=== PATIENT | male | born 1975 | race Caucasian/White ===

== ENCOUNTER 2024-06-25 03:11 | Observation (INO) | payer OTHER, SELFPAY ==
[2024-06-25] VITALS (33 sets, daily range): BP systolic 112–190; BP diastolic 62–119; PULSE 69–113; RESP 12–23; TEMP 36.3–36.9; O2SAT 87–97; BMI 37.2
--- NOTE | 2024-06-25 03:20 | DI.CT.S_ITS ---
PROCEDURE: CT ANGIO CHEST PE PROTOCOL INDICATIONS: SUDDEN DYSPNEA, TACHYCARDIA S/P TRAVEL TECHNIQUE: After the administration of intravenous contrast, 2 mm thick sections acquired from the pulmonary apices to the posterior costophrenic angles. 3-dimensional maximum intensity projection (MIP) coronal and sagittal reformats were then acquired through the thorax. For radiation dose reduction, the following was used: automated exposure control, adjustment of mA and/or kV according to patient size. COMPARISON: None. FINDINGS: Image quality: Diagnostic Lungs and pleura: [id number] diffuse septal thickening and ground-glass opacities trace right pleural effusion. A more focal nodular opacity is seen on 4/76 mention on the prelim report measuring 10 millimeters Mediastinum, heart, and esophagus: Cardiomegaly. No acute pulmonary embolism. Coronary calcifications. Incidentally noted right-sided aortic arch and descending aorta. No pathologic lymph nodes by size criteria. Unremarkable esophagus. Chest wall and thyroid: Unremarkable Upper abdomen: Unremarkable on this arterial phase study Bones: Unremarkable osseous structures IMPRESSION: No acute pulmonary embolism. [id number] septal thickening and ground-glass opacities likely pulmonary edema. Small pleural effusion. Differential includes atypical infection. A more focal nodular opacity seen on image 4/76 mentioned on the preliminary report in the right lower lobe measuring 10 millimeters. Consider surveillance imaging for the above findings. Incidentally noted right-sided aortic arch and thoracic descending aorta. Coronary calcifications. No significant discrepancy from the prelim report. Dictated by: Michele López M.D. on 06/25/2024 at 7:36 Approved by: Michele López M.D. on 06/25/2024 at 7:41
--- NOTE | 2024-06-25 03:28 | EKG_ITS ---
[facility] [id number], [place] [address] Test Date: 2024-06-25 Pat Name: Mc Almanza JR Department: [facility] Room: Gender: Male Paver Operator: : 1975 Requested By: Order Number: [id number] Reading MD: Onel Wilcox MD Measurements Intervals [place] Rate: 105 P: ND: 162 QRS: 19 QRSD: 90 T: 12 QT: 342 QTc: 452 Interpretive Statements Sinus tachycardia with occasional premature ventricular complexes Electronically Signed On 06-25-2024 11:40:46 PST by Onel Wilcox MD
[2024-06-25 03:32] LABS: Add Manual Diff / Slide Review NO; Basophils Absolute Auto 100 /uL (0-100); Basophils Percent Auto 0.8 % (0-2); Eosinophils Absolute Auto 200 /uL (0-450); Eosinophils Percent Auto 3.1 % (2-4); Hematocrit 46.9 % (41-53); Lymphocytes Absolute Auto 2700 /uL (1100-4500); Lymphocytes Percent Auto 37.1 % (25-40); Mean Corpuscular HGB Conc 34.1 % (30-36); Monocytes Absolute Auto 500 /uL (0-900); Monocytes Percent Auto 7.4 % (3-14); Neutrophils Absolute Auto 3800 /uL (1500-7000); Neutrophils Percent Auto 51.6 % (50-75); Platelet Count 248 X10^3/uL (150-400); Red Blood Cell Count 5.34 X10^6/uL (4.5-5.9); White Blood Cell Count 7.3 X10^3/uL (4.5-11.0)
--- NOTE | 2024-06-25 03:32 | ED.SOB ---
HPI - SOB/Dyspnea General Chief Complaint: Shortness of Breath/Dyspnea Stated Complaint: SOB Time Seen by Provider: 06/25/24 03:14 Source: patient Mode of arrival: Ambulatory Limitations: no limitations History of Present Illness HPI Narrative: 49-year-old male with history of hypertension, hyperlipidemia presents by private vehicle from home for shortness of breath. Patient states that he went to bed in his usual state of health. When he got up in the middle of the night to use the restroom he abruptly became short of breath. Recently traveled from [place] to [place]. Denies history of heart problems, lung problems, history of blood clots. Denies leg swelling or recent surgery. Related Data Allergies Allergy/AdvReac Type Severity Reaction Status Date / Time No Known Drug Allergies Allergy Verified 06/25/24 03:20 Patient History Social History Smoking Status: Never smoker Smoking Status: Never smoker alcohol intake frequency: a few times a month Substance Use Type: does not use Exam Initial Vital Signs Initial Vital Signs: Vital Signs Temperature 97.4 F L 06/25/24 03:20 Pulse Rate 113 H 06/25/24 03:20 Respiratory Rate 22 06/25/24 03:20 Blood Pressure 190/119 H 06/25/24 03:20 Pulse Oximetry 95 06/25/24 03:20 Oxygen Delivery Method Room Air 06/25/24 03:20 Const: Awake, alert, nontoxic appearing Cardiac: Tachycardia, regular rhythm RESP: Mild tachypnea, clear bilaterally, no wheezing GI: Soft, nontender, nondistended MSK: Grossly equal in size, full range of motion, pulses equal Skin: Warm, Dry, intact, no rashes Neuro: AO x3, CN II-XII grossly intact, moves all extremities Course Orders Ordered: ED Orders 06/25/24 03:20 CT angio chest PE protocol Stat 06/25/24 03:21 EKG-12 Lead Stat 06/25/24 03:25 BNP [NT-proBNP (BNP-Adult 18+)] Stat CBC Auto Diff [Complete Blood Count AUTO DIFF] Stat CMP [Comprehensive Metabolic Panel] Stat PT [Prothrombin Time INR] Stat Troponin & CK Cardiac Panel Stat 06/25/24 05:30 Trop I [Troponin I] Stat Furosemide (Furosemide 40 Mg/4 Ml Vial) 20 mg IV NOW ONE Stop: 06/25/24 05:02 Discontinued Medications Furosemide (Furosemide 40 Mg/4 Ml Vial) 20 mg IV NOW ONE Stop: 06/25/24 04:30 Last Admin: 06/25/24 04:46 Dose: 20 mg Documented By: BIJU Vital Signs Vital signs: Vital Signs - 8 hr 06/25/24 03:20 06/25/24 03:21 06/25/24 03:29 Temperature 97.4 F L Pulse Rate 113 H 109 H Respiratory Rate 22 Blood Pressure 190/119 H 185/111 H Pulse Oximetry 95 94 Oxygen Delivery Method Room Air Oxygen Flow Rate 06/25/24 03:29 06/25/24 03:30 06/25/24 03:54 Temperature Pulse Rate 108 H 113 H Respiratory Rate Blood Pressure Pulse Oximetry 92 93 87 L Oxygen Delivery Method Oxygen Flow Rate 06/25/24 03:57 06/25/24 03:57 06/25/24 04:00 Temperature Pulse Rate 103 H 100 H Respiratory Rate Blood Pressure 159/94 H Pulse Oximetry 91 90 L Oxygen Delivery Method Room Air Oxygen Flow Rate 06/25/24 04:00 06/25/24 04:30 06/25/24 04:30 Temperature Pulse Rate 79 Respiratory Rate Blood Pressure 150/87 H 133/82 Pulse Oximetry 93 Oxygen Delivery Method Nasal Cannula Oxygen Flow Rate 2 06/25/24 04:38 06/25/24 04:39 Temperature Pulse Rate 103 H Respiratory Rate Blood Pressure 143/91 H Pulse Oximetry 90 L Oxygen Delivery Method Room Air Oxygen Flow Rate MDM - SOB/Dyspnea Differential Diagnosis Differential diagnosis: Likely congestive heart failure, community acquired pneumonia and pulmonary embolism Lab Data 06/25/24 03:25 06/25/24 03:25 Labs: Lab Results 06/25/24 Range/Units 03:25 WBC 7.3 (4.5-11.0) X10^3/uL RBC 5.34 (4.5-5.9) X10^6/uL Hgb 16.0 (13.5-17.5) g/dL Hct 46.9 (41-53) % MCV 88.0 (80-100) fL MCH 30.0 (26-34) PG MCHC 34.1 (30-36) % RDW 14.0 (11.6-14.8) % Plt Count 248 (150-400) X10^3/uL Neut % (Auto) 51.6 (50-75) % Lymph % (Auto) 37.1 (25-40) % Gillespie % (Auto) 7.4 (3-14) % Eos % (Auto) 3.1 (2-4) % Baso % (Auto) 0.8 (0-2) % Neut # (Auto) 3800 (2674-3414) /uL Lymph # (Auto) 2700 (3366-4527) /uL Gillespie # (Auto) 500 (0-900) /uL Eos # (Auto) 200 (0-450) /uL Baso # (Auto) 100 (0-100) /uL PT 11.3 (9.4-12.5) SECONDS INR 1.0 (0.9-1.3) Sodium 140 (137-145) mmol/L Potassium 4.4 (3.4-5.1) mmol/L Chloride 105 (98-107) mmol/L Carbon Dioxide 27 (22-32) mmol/L BUN 14 (9-20) mg/dL Creatinine 0.76 (0.66-1.25) mg/dL Estimated GFR > 60 (>60) mL/min BUN/Creatinine Ratio 18.4 (6-22) Glucose 119 H (70-100) mg/dL Calcium 9.1 (8.4-10.2) mg/dL Total Bilirubin 0.5 (0.2-1.3) mg/dL AST 39 (17-59) IU/L ALT 29 (<50) IU/L Alkaline Phosphatase 52 (38-126) U/L Total Creatine Kinase 130 (55-170) U/L Troponin I < 0.012 (0.01-0.034) ng/mL NT-Pro-B Natriuret Pep 630 H (<125) pg/mL Total Protein 8.0 (6.3-8.2) g/dL Albumin 4.6 (3.5-5.0) g/dL Globulin 3.4 (1.7-4.1) g/dL Albumin/Globulin Ratio 1.4 (1.0-2.8) Imaging Data CT scan - chest: Radiologist's Impression: Preliminary read: No PE, right-sided pleural effusion and findings suggestive of congestive heart failure ECG Data Interpretation: Sinus tachycardia at 105 beats per minute. PVCs present. No STEMI MDM Narrative Medical decision making narrative: Sudden onset shortness of breath after travel. Patient initially with low O2 sats (90-93) and tachycardia on exam, concern primarily is for pulmonary embolism. Laboratory work, EKG, CT angio ordered for assessment. Preliminary review of CT angio does not show obvious large pulmonary embolism. Laboratory work is reviewed, normal CBC, normal electrolytes, troponin undetectable, BNP slightly elevated at 600. Patient dropping to the upper 80s even while at rest. He denies use of oxygen at home. Placed on 2 L supplemental nasal cannula with improvement in saturations to 95% and higher. CT shows no pulmonary embolism, however small right sided pleural effusion and thickening septa suggesting of congestive heart failure. 20 mg of IV Lasix ordered since patient was Lasix naive. Ambulating around the ER brings oxygen saturations to 90%. Patient is on vacation here from [place] and we will recommend admission for medical optimization. Discharge Plan Departure Patient Disposition: Admitted as Observation Clinical Impression: Congestive heart failure, Hypoxia Referrals: Mary Ann Crawford [Other] Admit Date/Time: 06/25/24 05:02 Admit Provider: Dipesh Aguirre
[2024-06-25 03:39] LABS: Prothrombin Time 11.3 SECONDS (9.4-12.5)
[2024-06-25 03:43] LABS: Alanine Aminotransferase 29 IU/L (<50); Albumin 4.6 g/dL (3.5-5.0); Albumin Globulin Ratio 1.4 (1.0-2.8); Alkaline Phosphatase 52 U/L (38-126); Aspartate Aminotransferase 39 IU/L (17-59); BUN Creatinine Ratio 18.4 (6-22); Bilirubin Total 0.5 mg/dL (0.2-1.3); Blood Urea Nitrogen 14 mg/dL (9-20); Calcium 9.1 mg/dL (8.4-10.2); Carbon Dioxide 27 mmol/L (22-32); Chloride 105 mmol/L (98-107); Creatine Kinase 130 U/L (55-170); Estimated Glomerular Filt Rate > 60 mL/min (>60); Globulin 3.4 g/dL (1.7-4.1); Glucose 119 mg/dL (70-100); Potassium 4.4 mmol/L (3.4-5.1); Sodium 140 mmol/L (137-145)
--- NOTE | 2024-06-25 03:43 | PC.NURSE ---
Pt to imaging via wheel chair with tech
[2024-06-25 03:55] LABS: NT-proBNP (BNP-Adult 18+) 630 pg/mL (<125); Troponin I < 0.012 ng/mL (0.01-0.034)
[2024-06-25 03:59] LABS: HEMOLYSIS 76 (0-50)
--- NOTE | 2024-06-25 04:15 | PC.NURSE ---
Pulse ox noted to drop as low as 86% then back up to 95% and between. Dr. Castillo informed. Pt placed on 2lnc.
--- NOTE | 2024-06-25 04:39 | PC.NURSE ---
Pt maintained between 90-92% pulse ox during ambulation on room air. Dr. Jonathan short.
[2024-06-25] MEDS: FUROSEMIDE 40 MG/4 ML VIAL 20 MG IV (04:46)
--- NOTE | 2024-06-25 05:26 | DI.ECHO.S_ITS ---
Version: 1 Study ID: [id number] [address] [place] [address] Name: ELADIA SAENZ JR Study Date: 06/25/2024, 4: 57 PM : 1975 BP: 163 / 107 mmHg Gender: Male Height: 64 in Age: 49 Years Weight: 217 lb BSA: 2.03 mA? Ordering: FISH NELSON Referring: FISH NELSON Clinician: Rizwan Figueredo Reason For Study: CONGESTIVE HEART FAILURE History: Summary Statements Sinus tachycardia with frequent PVC's. Normal LV size and wall thickness; global hypokinesis with EF 40-45%. Moderate LA enlargement; otherwise normal chamber sizes. Mild mAC; otherwise no significant valvular abnormalities. No prior study available for comparison. Procedure: A two-dimensional transthoracic echocardiogram with color flow and Doppler was performed. The study quality was technically good. There is no prior echocardiogram noted for this patient. The patient was in sinus tachycardia with heart rates between 101-115 bpm during the exam. The patient had frequent PVCs during the exam. Left Ventricle: The ejection fraction is estimated to be 40-45%. Left ventricular systolic function is mildly reduced. The left ventricle is normal in size. There is normal left ventricular wall thickness. There is no ventricular septal defect visualized. Right Ventricle: The right ventricle is normal in size and function. Atria: The interatrial septum bows toward right atrium consistent with elevated left atrial pressure. There is no Doppler evidence for an interatrial shunt. The left atrium is moderately dilated. Right atrial size is normal. Mitral Valve: There is mild mitral regurgitation. The mitral valve leaflets appear mildly thickened, but open well. The mitral valve leaflets are mildly calcified. Aortic Valve: There is trace aortic regurgitation. The aortic valve is trileaflet. The aortic valve is mildly calcified. Tricuspid Valve: There is mild tricuspid regurgitation. The right ventricular systolic pressure is estimated to be at least 43 mmHg based on an estimated right atrial pressure of 3 mm Hg. The tricuspid valve is normal in structure and function. Pulmonic Valve: There is trace pulmonic regurgitation. The pulmonic valve is normal in structure and function. Great Vessels: The dimensions of the ascending aorta are normal. The aortic root is mildly dilated. The IVC is of normal diameter and collapses greater than 50% with a sniff. This suggests a low right atrial pressure of 3 mm Hg. The pulmonary artery is normal size. Pericardium/ Pleura: There is no pericardial effusion. There is no pleural effusion. 2D and M-Mode Measurements and Calculations LVIDd: 5.6 cm AoV Openin.71 cm LVIDs: 4.4 cm LVOT diam: 2.33 cm IVSd: 1.03 cm Ao root diam: 4.0 cm LVPWd: 1.00 cm asc Aorta Diam: 3.2 cm LV kirk. diameter/BSA (cm/m^2): 2.8 Ao Arch Diam (Prox Trans): 2.6 cm LV sys. diameter/BSA (cm/m^2): 2.16 EPSS: 0.92 cm RVD1 (basal): 3.7 cm RVD2 (mid): 3.2 cm TAPSE: 2.6 cm LA A4 area: 33.8 installers mechanical? IVC diam: 1.97 cm LA A2 area: 16.2 installers mechanical? RA area: 11.4 installers mechanical? LA length (vol): 7.2 cm RA long axis: 4.8 cm LA vol: 64.4 ml RA vol: 23.0 ml LA vol index: 31.8 ml/mA? RA : 11.4 ml/mA? Doppler Measurements and Calculations Ao V2 max: 138.1 cm/sec LVOT Max Thai: 71.5 cm/sec Ao V2 mean: 84.8 cm/sec LV V1 max P.05 mmHg Ao V2 VTI: 19.7 cm LV V1 VTI: 13.0 cm Ao max P.6 mmHg SV(LVOT): 55.6 ml Ao mean P.4 mmHg CECI(I,D): 2.8 installers mechanical? CECI(V,D): 2.21 installers mechanical? CECI indexed to BSA (cm^2/m^2): 1.39 sev ratio: 0.66 MV E max thai: 129.3 cm/sec MV dec time: 0.11 sec MV A max thai: 53.3 cm/sec MV E/A: 2.43 Med Peak E' Thai: 9.6 cm/sec Lat Peak E' Thai: 12.4 cm/sec E/e' average: 11.9 TR max thai: 318.0 cm/sec PA mean P.03 mmHg TR max P.5 mmHg PA V2 max: 69.6 cm/sec Electronically signed by: Elmira De Anda M.D. 06/25/2024, 5: 12 PM
--- NOTE | 2024-06-25 05:33 | P.HP_ITS ---
History of Present Illness History of Present Illness Date Patient Seen: 06/25/24 Time Patient Seen: 05:45 Chief complaint: SOB Narrative: 49 y/o with PMH of HTN and HLD, came to ER after he suddenly became short of breath, in the middle of the night when he woke up to use the bathroom. On arrival severely hypertensive, hypoxemic with pulmonary edema. Placed in observation after he continued to desaturate with minimal activity, despite given diuretic. He is visiting from [place], he takes 5 mg of Norvasc and 50 mg of Toprol XL, in addition to statin. He does not have a list with him but has medications and he was compliant. He is on that regimen for some time. He never gets chest pain or pressure and occasionally he would have palpitations. [facility] Social History Smoking Status: Never smoker Meds Home Medications and Allergies Allergies Allergy/AdvReac Type Severity Reaction Status Date / Time No Known Drug Allergies Allergy Verified 06/25/24 03:20 Review of Systems Constitutional Comments: w/o weight changes, fever, chills Eyes Comments: w/o vision changes Cardiovascular Comments: w/o chest pain, occasionally has palpitations Respiratory Comments: currently short of breath Musculoskeletal Comments: w/o myalgia Neurologic Comments: w/o headache, weakness or numbness Exam Vital Signs (past 8 hours): - 06/25/24 03:20 06/25/24 03:21 06/25/24 03:29 Temperature 97.4 F L Pulse Rate 113 H 109 H Respiratory Rate 22 Blood Pressure 190/119 H 185/111 H Pulse Oximetry 95 94 Oxygen Delivery Method Room Air Oxygen Flow Rate 06/25/24 03:29 06/25/24 03:30 06/25/24 03:54 Temperature Pulse Rate 108 H 113 H Respiratory Rate Blood Pressure Pulse Oximetry 92 93 87 L Oxygen Delivery Method Oxygen Flow Rate 06/25/24 03:57 06/25/24 03:57 06/25/24 04:00 Temperature Pulse Rate 103 H 100 H Respiratory Rate Blood Pressure 159/94 H Pulse Oximetry 91 90 L Oxygen Delivery Method Room Air Oxygen Flow Rate 06/25/24 04:00 06/25/24 04:30 06/25/24 04:30 Temperature Pulse Rate 79 Respiratory Rate Blood Pressure 150/87 H 133/82 Pulse Oximetry 93 Oxygen Delivery Method Nasal Cannula Oxygen Flow Rate 2 06/25/24 04:38 06/25/24 04:39 06/25/24 04:39 Temperature Pulse Rate 103 H 91 H Respiratory Rate Blood Pressure 143/91 H Pulse Oximetry 90 L 91 Oxygen Delivery Method Room Air Oxygen Flow Rate 06/25/24 05:00 06/25/24 05:00 Temperature Pulse Rate 91 H Respiratory Rate Blood Pressure 164/96 H Pulse Oximetry 95 Oxygen Delivery Method Nasal Cannula Oxygen Flow Rate 2 Oxygen Delivery Method Nasal Cannula Oxygen Flow Rate 2 Const Other: sitting in bed in no distress, at bedside HENNM Other: normocephalic Neck Other: supple Resp Other: tachypneic, rales Cardio Other: RRR Neuro Other: w/o deficits Extrem Other: w/o swelling Psych Other: lucid, normal mood Objective ECG Impression: Sinus tachycardia 105, PVCs, w/o ischemic changes Labs 06/25/24 03:25 06/25/24 03:25 Labs: Laboratory Results - last 24 hr 06/25/24 03:25 WBC 7.3 RBC 5.34 Hgb 16.0 Hct 46.9 MCV 88.0 MCH 30.0 MCHC 34.1 RDW 14.0 Plt Count 248 Neut % (Auto) 51.6 Lymph % (Auto) 37.1 Moca % (Auto) 7.4 Eos % (Auto) 3.1 Baso % (Auto) 0.8 Neut # (Auto) 3800 Lymph # (Auto) 2700 Moca # (Auto) 500 Eos # (Auto) 200 Baso # (Auto) 100 PT 11.3 INR 1.0 Sodium 140 Potassium 4.4 Chloride 105 Carbon Dioxide 27 BUN 14 Creatinine 0.76 Estimated GFR > 60 BUN/Creatinine Ratio 18.4 Glucose 119 H Calcium 9.1 Total Bilirubin 0.5 AST 39 ALT 29 Alkaline Phosphatase 52 Total Creatine Kinase 130 Troponin I < 0.012 NT-Pro-B Natriuret Pep 630 H Total Protein 8.0 Albumin 4.6 Globulin 3.4 Albumin/Globulin Ratio 1.4 Assessment & Plan Assessment and plan (1) Acute CHF (congestive heart failure): Qualifiers: Heart failure type: unspecified Qualified Code(s): I50.9 - Heart failure, unspecified Status: Acute (2) Acute hypoxemic respiratory failure: Status: Acute (3) Hypertensive urgency: Status: Acute (4) HLD (hyperlipidemia): Qualifiers: Hyperlipidemia type: unspecified Qualified Code(s): E78.5 - Hyperlipidemia, unspecified Status: Acute Assessment & Plan narrative: Uncontrolled HTN / HTN Urgency / CHF - he was guessing names of amlodipine and metoprolol and even more so doses, it seems that he takes 5 mg of Norvasc and 50 mg of Toprol XL and that he was compliant with medications while traveling - likely changed diet with increased sodium load - diuresis. Had Lasix 20 mg IVP x 2 in the ED couiple of hours ago, continue with 20 mg po daily starting this morning at 9 - monitored electrolytes - BMP at 9 am - echocardiogram if available. Never had one Acute Hypoxemic Respiratory Failure - oxygen prn ` HLD - on statin at home DVT prophylaxis - Lovenox Time-Based Coding :: [TOTAL MINUTES] spent with patient and on the chart (including review of chart, obtaining history, exam, reviewing outside data, placing orders, documenting exam and treatment plan, and counseling patient) on [DATE].
--- NOTE | 2024-06-25 06:02 | PC.NURSE ---
Repeat troponin level drawn by straight stick butterfly 21g left hand without complications.
[2024-06-25 06:45] LABS: Troponin I 0.025 ng/mL (0.01-0.034)
[2024-06-25] MEDS: FUROSEMIDE 20 MG TABLET PO ×2 (08:13→16:47)
[2024-06-25] MEDS: ENOXAPARIN 40 MG/0.4 ML SYRINGE SUBCUT (08:14)
[2024-06-25 09:35] LABS: BUN Creatinine Ratio 17.7 (6-22); Blood Urea Nitrogen 11 mg/dL (9-20); Calcium 9.1 mg/dL (8.4-10.2); Carbon Dioxide 25 mmol/L (22-32); Chloride 105 mmol/L (98-107); Estimated Glomerular Filt Rate > 60 mL/min (>60); Glucose 129 mg/dL (70-100); HEMOLYSIS < 15 (0-50); Potassium 4.1 mmol/L (3.4-5.1); Sodium 139 mmol/L (137-145)
--- NOTE | 2024-06-25 12:12 | PC.NURSE ---
Pt is up and down to the bathroom, declines SCD's at this time.
--- NOTE | 2024-06-25 15:04 | P.HP_ITS ---
History of Present Illness History of Present Illness Date Patient Seen: 06/25/24 Time Patient Seen: 13:25 Date of Onset of Symptoms: 06/25/24 Chief complaint: SOB Narrative: Narrative: 49 y/o with PMH of HTN and HLD, came to ER after he suddenly became short of breath, in the middle of the night when he woke up to use the bathroom. On arrival severely hypertensive, hypoxemic with pulmonary edema. Placed in observation after he continued to desaturate with minimal activity, despite given diuretic. He is visiting from [place], he takes 5 mg of Norvasc and 50 mg of Toprol XL, in addition to statin. He does not have a list with him but has medications and he was compliant. He is on that regimen for some time. He never gets chest pain or pressure and occasionally he would have palpitations. Interval history: The patient's medication list is clarified. He states he was off for 2 months as he ran out but restarted 3.5 weeks ago. He denies chest pain or palpitations. He states his shortness of breath has resolved since a dose of furosemide. [facility] Social History household members: spouse Smoking Status: Never smoker alcohol intake: current Meds Home Medications and Allergies Home Medications Medication Instructions Recorded Confirmed Type amlodipine 10 mg-benazepril 40 mg 1 cap PO DAILY 06/25/24 06/25/24 History capsule esomeprazole magnesium 40 mg 40 mg PO DAILY 06/25/24 06/25/24 History capsule,delayed release metoprolol succinate 25 mg 25 mg PO DAILY 06/25/24 06/25/24 History tablet,extended release 24 hr simvastatin 20 mg tablet 20 mg PO ONCE PM 06/25/24 06/25/24 History Allergies Allergy/AdvReac Type Severity Reaction Status Date / Time No Known Drug Allergies Allergy Verified 06/25/24 03:20 Review of Systems Review of Systems ROS: Yes All systems reviewed with the patient and are negative except as otherwise documented Exam Vital Signs (past 8 hours): - 06/25/24 07:18 06/25/24 07:29 06/25/24 07:30 Temperature 98 F Pulse Rate 81 Respiratory Rate 13 Blood Pressure 135/82 Pulse Oximetry 92 Oxygen Flow Rate 06/25/24 07:30 06/25/24 08:00 06/25/24 08:00 Temperature Pulse Rate 79 85 Respiratory Rate 13 23 Blood Pressure 144/89 H Pulse Oximetry 93 94 Oxygen Flow Rate 06/25/24 08:30 06/25/24 08:30 06/25/24 09:00 Temperature Pulse Rate 75 Respiratory Rate 18 Blood Pressure 125/76 137/72 Pulse Oximetry 93 Oxygen Flow Rate 06/25/24 09:00 06/25/24 09:30 06/25/24 09:30 Temperature Pulse Rate 84 84 Respiratory Rate 16 15 Blood Pressure 125/73 Pulse Oximetry 95 93 Oxygen Flow Rate 06/25/24 10:00 06/25/24 10:00 06/25/24 10:30 Temperature Pulse Rate 69 83 Respiratory Rate 12 15 Blood Pressure 112/62 Pulse Oximetry 92 96 Oxygen Flow Rate 06/25/24 10:30 06/25/24 11:00 06/25/24 12:00 Temperature Pulse Rate 89 86 Respiratory Rate 22 21 Blood Pressure 113/70 Pulse Oximetry 96 96 Oxygen Flow Rate 06/25/24 12:29 06/25/24 12:29 06/25/24 12:30 Temperature Pulse Rate 85 Respiratory Rate Blood Pressure 158/92 H 153/88 H Pulse Oximetry 94 Oxygen Flow Rate 06/25/24 12:30 06/25/24 12:40 Temperature 97.5 F L Pulse Rate 85 93 H Respiratory Rate 14 Blood Pressure 184/106 H Pulse Oximetry 94 97 Oxygen Flow Rate 0 Oxygen Delivery Method Nasal Cannula Oxygen Flow Rate 0 Narrative Exam Narrative: GENERAL: This is a well-nourished, well-developed patient, in no apparent distress. HEAD: Atraumatic. Normocephalic. No temporal or scalp tenderness. EYES: Pupils equal round and reactive. Extraocular motions intact. No scleral icterus. No injection or drainage. ENT: Mucous membranes pink and moist. NECK: Trachea midline. No JVD, bruits or lymphadenopathy. Supple, nontender, no meningeal signs. CARDIOVASCULAR: Regular rate and rhythm without murmurs, gallops, or rubs. RESPIRATORY: Clear to auscultation. GASTROINTESTINAL: Abdomen soft, non-tender, nondistended. EXTREMITIES: No clubbing, cyanosis, or edema. BACK: Nontender without deformity or crepitance. No flank tenderness. NEUROLOGIC: Alert, oriented, speech fluent, full upper and lower motor strength, no focal deficits evident. DERMATOLOGIC: No rashes or skin lesions. Objective ECG Impression: Sinus tachycardia at 105bpm with occasional premature ventricular complexes. Imaging CTA chest: Radiologist's impression: No acute pulmonary embolism. [id number] septal thickening and ground-glass opacities likely pulmonary edema. Small pleural effusion. Differential includes atypical infection. A more focal nodular opacity seen on image 4/76 mentioned on the preliminary report in the right lower lobe measuring 10 millimeters. Consider surveillance imaging for the above findings. Incidentally noted right-sided aortic arch and thoracic descending aorta. Coronary calcifications. No significant discrepancy from the prelim report. Labs 06/25/24 03:25 06/25/24 09:16 Labs: Laboratory Results - last 24 hr 06/25/24 06/25/24 06/25/24 03:25 05:58 09:16 WBC 7.3 RBC 5.34 Hgb 16.0 Hct 46.9 MCV 88.0 MCH 30.0 MCHC 34.1 RDW 14.0 Plt Count 248 Neut % (Auto) 51.6 Lymph % (Auto) 37.1 [place] % (Auto) 7.4 Eos % (Auto) 3.1 Baso % (Auto) 0.8 Neut # (Auto) 3800 Lymph # (Auto) 2700 [place] # (Auto) 500 Eos # (Auto) 200 Baso # (Auto) 100 PT 11.3 INR 1.0 Sodium 140 139 Potassium 4.4 4.1 Chloride 105 105 Carbon Dioxide 27 25 BUN 14 11 Creatinine 0.76 0.62 L Estimated GFR > 60 > 60 BUN/Creatinine Ratio 18.4 17.7 Glucose 119 H 129 H Calcium 9.1 9.1 Total Bilirubin 0.5 AST 39 ALT 29 Alkaline Phosphatase 52 Total Creatine Kinase 130 Troponin I < 0.012 0.025 NT-Pro-B Natriuret Pep 630 H Total Protein 8.0 Albumin 4.6 Globulin 3.4 Albumin/Globulin Ratio 1.4 Assessment & Plan Assessment & Plan narrative: 1. Acute CHF (congestive heart failure). 2. Acute hypoxemic respiratory failure. 3. Hypertensive urgency. 4. HLD (hyperlipidemia). Plan: - continue home medications - likely changed diet with increased sodium load. Low sodium diet advised. - diuresis. Had Lasix 20 mg IVP x 2 in the ED couiple of hours ago, continue with 20 mg po daily starting this morning at 9 - monitored electrolytes - echocardiogram - DVT prophylaxis - Lovenox Time-Based Coding :: [TOTAL MINUTES] spent with patient and on the chart (including review of chart, obtaining history, exam, reviewing outside data, placing orders, documenting exam and treatment plan, and counseling patient) on [DATE]. Quality VTE Deep Vein Thrombosis/Pulmonary Embolism Present on Admission: No MIPS - Admit I confirm the patient?s Advance Care Plan is present, Code status is documented, Surrogate decision maker is in patient?s record [If Yes, STOP here]: Yes [facility] - Meds 'Current medications' to include all prescriptions, [id number] products, herbals, cannabis/cannabidiol products, and vitamin/mineral/dietary (nutritional) supplements. I have utilized all available resources to obtain, update, or review the patient?s current medications. [If Yes, STOP here]: Yes [facility] Charge Codes Initial inpatient/observation care: 13459
[2024-06-25] MEDS: AMLODIPINE 5 MG TABLET 10 MG PO (15:12)
[2024-06-25] MEDS: METOPROLOL ER 25 MG TABLET PO (15:12)
[2024-06-25] MEDS: lisinopriL 20 MG TABLET 40 MG PO (15:13)
--- NOTE | 2024-06-25 18:12 | PC.NURSE ---
MADE AWARE OF PATIENTS INCREASE BP, NO NEW ORDERS .LASIX GIVEN PER SCHED.
[2024-06-25] MEDS: ATORVASTATIN 20 MG TABLET 10 MG PO (20:25)
[2024-06-26] VITALS: BP 128/88; PULSE 83; RESP 14; TEMP 36.2; O2SAT 97
[2024-06-26 04:00] VITALS: BP 138/89; PULSE 80; RESP 14; TEMP 36.6; O2SAT 96
[2024-06-26 05:59] LABS: BUN Creatinine Ratio 15.9 (6-22); Blood Urea Nitrogen 13 mg/dL (9-20); Calcium 9.6 mg/dL (8.4-10.2); Carbon Dioxide 28 mmol/L (22-32); Chloride 101 mmol/L (98-107); Estimated Glomerular Filt Rate > 60 mL/min (>60); Glucose 110 mg/dL (70-100); HEMOLYSIS < 15 (0-50); Potassium 3.9 mmol/L (3.4-5.1); Sodium 140 mmol/L (137-145)
[2024-06-26] MEDS: FUROSEMIDE 20 MG TABLET PO (09:00)
[2024-06-26 09:01] VITALS: BP 154/102; PULSE 94
[2024-06-26] MEDS: lisinopriL 20 MG TABLET 40 MG PO (09:01)
[2024-06-26] MEDS: PANTOPRAZOLE DR 40 MG TABLET PO (09:01)
[2024-06-26] MEDS: AMLODIPINE 5 MG TABLET 10 MG PO (09:04)
[2024-06-26 09:05] VITALS: BP 154/102; PULSE 94
[2024-06-26] MEDS: METOPROLOL ER 25 MG TABLET PO (09:05)
[2024-06-26 09:23] VITALS: BP 137/98
[2024-06-26 09:37] VITALS: BP 146/98; PULSE 96; RESP 14; TEMP 36.2; O2SAT 99
--- NOTE | 2024-06-26 11:00 | P.DS_ITS ---
History of Present Illness History of Present Illness Date Patient Seen: 06/26/24 Time Patient Seen: 09:30 Date of Onset of Symptoms: 06/25/24 Chief complaint: SOB Narrative: Narrative: 49 y/o with PMH of HTN and HLD, came to ER after he suddenly became short of breath, in the middle of the night when he woke up to use the bathroom. On arrival severely hypertensive, hypoxemic with pulmonary edema. Placed in observation after he continued to desaturate with minimal activity, despite given diuretic. He is visiting from [place], he takes 5 mg of Norvasc and 50 mg of Toprol XL, in addition to statin. He does not have a list with him but has medications and he was compliant. He is on that regimen for some time. He never gets chest pain or pressure and occasionally he would have palpitations. Interval history: The patient's medication list is clarified. He states he was off for 2 months as he ran out but restarted 3.5 weeks ago. He denies chest pain or palpitations. He states his shortness of breath has resolved since a dose of furosemide. Discharge Providers Provider Date of admission: 06/25/24 05:02 Discharge Date: 06/26/24 Primary care physician: Mary Ann Crawford Discharge provider: Isiah Loza MD Summary Hospital Course Discharge Diagnosis: 1. Acute systolic congestive heart failure, likely hypertensive cardiomyopathy 2. Hypertensive urgency 3. Essential hypertension 4. Hyperlipidemia 5. Severe obesity Hospital Course: The patient was admitted and administered intravenous furosemide with significant improvement, with blood pressures improving to the 120s to 140s over 80s to 90s. He was feeling significantly better with complete resolution of shortness of breath and presenting orthopneic symptoms. Echocardiography noted ejection fraction 40-45% without wall motion abnormalities, with otherwise an unremarkable study. He was feeling significantly better and interested in discharge home, with follow-up in the [place] area for outpatient workup to include cardiology consultation. No other issues arose. Status at Discharge Cognitive/behavioral status at discharge: oriented Functional status at discharge: independent ambulation Overall status at discharge: patient is back to baseline Time Spent with Patient Time spent: Greater than 30 minutes Exam Vital Signs (past 8 hours): - 06/26/24 04:00 06/26/24 09:01 06/26/24 09:05 Temperature 97.8 F Pulse Rate 80 94 H 94 H Respiratory Rate 14 Blood Pressure 138/89 154/102 H 154/102 H Pulse Oximetry 96 Oxygen Flow Rate 0 06/26/24 09:23 06/26/24 09:37 Temperature 97.2 F L Pulse Rate 96 H Respiratory Rate 14 Blood Pressure 137/98 H 146/98 H Pulse Oximetry 99 Oxygen Flow Rate 0 Oxygen Delivery Method Room Air Oxygen Flow Rate 0 Narrative Exam Narrative: GENERAL: This is a well-nourished, well-developed patient, in no apparent distress. EYES: Pupils equal round and reactive. Extraocular motions intact. No scleral icterus. No injection or drainage. ENT: Mucous membranes pink and moist. NECK: Trachea midline. No JVD, bruits or lymphadenopathy. Supple, nontender, no meningeal signs. CARDIOVASCULAR: Regular rate and rhythm without murmurs, gallops, or rubs. RESPIRATORY: Clear to auscultation. GASTROINTESTINAL: Abdomen soft, non-tender, nondistended. EXTREMITIES: No clubbing, cyanosis, or edema. NEUROLOGIC: Alert, oriented, speech fluent, full upper and lower motor strength, no focal deficits evident. DERMATOLOGIC: No rashes or skin lesions. Objective Labs 06/25/24 03:25 06/26/24 05:06 Labs: Laboratory Results - last 24 hr 06/26/24 05:06 Sodium 140 Potassium 3.9 Chloride 101 Carbon Dioxide 28 BUN 13 Creatinine 0.82 Estimated GFR > 60 BUN/Creatinine Ratio 15.9 Glucose 110 H Calcium 9.6 PFSH Social History household members: spouse Smoking Status: Never smoker alcohol intake: current Discharge Plan Discharge Plan Patient Disposition: Home Provider Discharge Comment: Followup with PCP 1 week Nursing Discharge Comment: Give discharge packet with all labs/ER/H&P/DC summary, echocardiogram, EKGs to patient Discharge orders & Medications Prescriptions: New furosemide 20 mg tablet 20 mg PO DAILY Qty: 20 0RF Continued simvastatin 20 mg tablet 20 mg PO ONCE PM esomeprazole magnesium 40 mg capsule,delayed release(DR/EC) 40 mg PO DAILY metoprolol succinate 25 mg tablet extended release 24 hr 25 mg PO DAILY amlodipine-benazepril 10-40 mg capsule 1 cap PO DAILY Follow up/Referrals: Mary Ann Crawford [Other] Mary Ann Crawford [Other] Visit Report/Discharge Packet Stand Alone Forms: Patient Portal/API, Stroke Signs & Symptoms Discharge Data Primary Care Provider: Mary Ann Crawford Attending Provider: Dipesh Aguirre Admit Date/Time: 06/25/24 05:02 Quality VTE Deep Vein Thrombosis/Pulmonary Embolism Present on Admission: No MIPS - Admit I confirm the patient?s Advance Care Plan is present, Code status is documented, Surrogate decision maker is in patient?s record [If Yes, STOP here]: Yes [facility] - Meds 'Current medications' to include all prescriptions, [id number] products, herbals, cannabis/cannabidiol products, and vitamin/mineral/dietary (nutritional) supplements. I have utilized all available resources to obtain, update, or review the patient?s current medications. [If Yes, STOP here]: Yes MIPS - DC The patient has a history of heart transplant or Left Ventricular Assist Device (LVAD). If yes, STOP here.: No The patient has current or prior documentation of left ventricular ejection fraction (LVEF) less than or equal to 40%, or moderate or severely depressed left ventricular systolic function.: Yes A. The patient was prescribed or already taking an Angiotensin-Converting Enzyme (PAMELA) Inhibitor, or Angiotensin Receptor Nate (ARB).: Yes B. The patient was prescribed or already taking a beta-nate. [If Yes to Both A & B, STOP here]: Yes Patient not prescribed/taking PAMELA or ARB, no reason given.: No Patient not prescribed/taking beta-nate, no reason given.: No [facility] Charge Codes Discharge inpatient/observation: [id number]
--- NOTE | 2024-06-26 13:30 | PC.NURSE ---
Pt discharged home at 1300, ambulated off floor accompanied by hospital staff. IV removed, tele d/c'd, discharge teaching extensively reviewed including new medications, worsening symptoms, dietary/lifestyle changes and follow up appointments. Questions answered and concerns addressed. Patient left the floor with all belongings.
== END 2024-06-26 13:05 | disposition home or self-care (01) ==
LOC: ED 03:45 → AC 05:02
PROVIDERS: Internal Medicine; Admitting Provider Internal Medicine; Emergency Provider Emergency Medicine; Visit Provider Internal Medicine
DX: I11.0 Hypertensive heart disease with heart failure (principal); I50.21 Acute systolic (congestive) heart failure; I16.0 Hypertensive urgency; E78.5 Hyperlipidemia, unspecified; E66.9 Obesity, unspecified
CPT/HCPCS: 36415; 71275; 80048; 80053; 82550; 83880; 84484; 85025; 85610; 93005; 93306; 96374; 99284; G0378; J1650; J1940; Q9967